=== PATIENT | male | born 1960 | race Caucasian/White ===

== ENCOUNTER 2017-07-17 08:03 | Emergency (ER) | payer OTHER ==
--- NOTE | 2017-07-17 09:01 | Cat Scan Report ---
FINAL REPORT EXAM: CT HEAD/BRAIN WO CON HISTORY: SEVERE HEADACHE TECHNIQUE: CT imaging acquired through the head without intravenous contrast. Transaxial reformations are provided. PRIORS: None. FINDINGS: The ventricles, cisterns and sulci are within normal limits. No intraparenchymal or extra-axial mass, hemorrhage, or mass effect. Cortez and white-matter differentiation is within normal limits for patient age. Normal spherical shape of the globes. No significant abnormality involving the imaged portions of the paranasal sinuses and mastoid air cells. No skull or facial fracture visualized. IMPRESSION: No acute intracranial abnormality. Consider additional imaging for worsening/persistent symptoms.
[2017-07-17] MEDS ORDERED: ULTRAM PO ONE (09:23)
--- NOTE | 2017-07-17 09:25 | Emergency Department Report ---
ED Headache HPI - General Chief Complaint: Headache Stated Complaint: HEAD PAIN Time Seen by Provider: 07/17/17 08:31 Source: patient, old records - History of Present Illness Timing/Duration: other (THIS AM) Quality: mild Head Injury Location: parietal Recent Head Trauma: no recent headache/trauma Associated Symptoms: denies symptoms, other (HEAD PAIN NOT SCALP PAIN; NO N/V; NO PHOTOPHOBIA; DROVE TO ER; AMBULATORY). denies: confusion, fatigue, facial pain, fever/chills, flushing, loss of consciousness, nausea/vomiting, nasal congestion, nasal drainage, numbness in legs/feet, rash, seizures, sinus infection, stiff neck, vision changes, weakness Allergies/Adverse Reactions: Allergies No Known Allergies Allergy (Unverified 07/17/17 08:09) Home Medications: Ambulatory Orders traMADol [Ultram] 50 mg PO Q6HR PRN #12 tablet 07/17/17 ED Review of Systems ROS: Stated complaint: HEAD PAIN Other details as noted in HPI Comment: All other systems reviewed and negative Neurological: headache. denies: weakness, numbness, paresthesias, confusion, abnormal gait, vertigo ED Past Medical Hx - Past Medical History Previous Medical History?: No - Surgical History Past Surgical History?: No - Social History Smoking Status: Former Smoker Substance Use Type: None - Medications Home Medications: Home Medications Medication Instructions Recorded Confirmed Last Taken Type traMADol [Ultram] 50 mg PO Q6HR PRN #12 tablet 07/17/17 Unknown Rx ED Physical Exam - General Limitations: No Limitations General appearance: alert, in no apparent distress - Head Head exam: Present: atraumatic - Eye Eye exam: Present: PERRL, EOMI - ENT ENT exam: Present: mucous membranes moist - Neck Neck exam: Present: normal inspection - Respiratory Respiratory exam: Present: normal lung sounds bilaterally - Cardiovascular Cardiovascular Exam: Present: regular rate, normal rhythm (60 ON EXAM) - GI/Abdominal GI/Abdominal exam: Present: soft - Rectal Rectal exam: Present: deferred - Extremities Exam Extremities exam: Present: normal inspection, full ROM, normal capillary refill. Absent: tenderness, pedal edema, joint swelling - Back Exam Back exam: Present: normal inspection, full ROM. Absent: tenderness, CVA tenderness (R), CVA tenderness (L), muscle spasm, paraspinal tenderness, vertebral tenderness - Neurological Exam Neurological exam: Present: alert, oriented X3, CN II-XII intact, normal gait, reflexes normal - Expanded Neurological Exam Expanded Neurological exam: Present: protecting the airway. Absent: innattentive, memory loss-remote event, memory loss-recent event, ataxia, receptive aphasia, expressive aphasia, total aphasia, tremor Patient oriented to: Present: person, place, time Speech: Present: fluid speech. Absent: receptive aphasia, expressive aphasia, total aphasia Cranial nerves: EOM's Intact: Normal, Gag Reflex: Normal, Tongue Deviation: Normal, Nystagmus: Normal, Facial Sensation: Normal Cerebellar function: Finger to Nose: Normal, Heel to [place]: Normal, Romberg: Normal Upper motor neuron: Pronator Drift: Normal Motor strength exam: RUE: 5, LUE: 5, RLE: 5, LLE: 5 Best Eye Response ([place]): (4) open spontaneously Best Motor Response ([place]): (6) obeys commands Best Verbal Response ([place]): (5) oriented [place] Total: 15 - Psychiatric Psychiatric exam: Present: normal affect, normal mood - Skin Skin exam: Present: warm, dry, intact, normal color ED Course Vital Signs 07/17/17 07/17/17 08:10 10:16 Temperature 97.8 F 97.9 F Pulse Rate 61 55 L Respiratory 18 16 Rate Blood Pressure 136/64 Blood Pressure 122/75 [Left] O2 Sat by Pulse 97 96 Oximetry - Reevaluation(s) Reevaluation #1: 07/17/17 TO ER W AN THIS AM NO ASSOCIATED S/S HE DROVE TO ER IS AMBULATORY NAD VSS NO HTN NO MEDS NO FEVER NO MENINGEAL S/S NO FOCAL NEURO DEF NO FALL NO MVA LOCALIZED AN TO R PAR. AREA. DENIES SKIN PAIN NO RASH NO SINUS TENDERNESS HEENT OTHERWISE N NO CP NO SOB CT NEG TX FOR PAIN PAIN IS DULL AND LOCALIZED Reevaluation #2: 07/17/17 REASSESSED AND PAIN DEC PT EDUCATED ON VARIOUS TYPES OF AN HE WILL SEE PCP THIS WEEK; TOLD HIM IF PERSISTS HE MAY NEED NEURO MD VERBALIZES UNDERSTANDING ED Medical Decision Making - Radiology Data Radiology results: report reviewed, image reviewed - Medical Decision Making SEE NOTE - Differential Diagnosis RO INTRACRANIAL CAUSE OF AH Critical care attestation.: If time is entered above; I have spent that time in minutes in the direct care of this critically ill patient, excluding procedure time. ED Disposition Clinical Impression: Headache Disposition: [id number] TO HOME OR SELFCARE Is pt being admited?: No Does the pt Need Aspirin: No Condition: Stable Instructions: Acute Headache (ED) Additional Instructions: see pcp on Wednesday AM hydrate well MEDS ORDERED TODAY LET YOUR PCP KNOW YOU WHERE SEEN HERE TODAY AND HE CAN CALL US FOR CT REPORT - WHICH IS NORMAL RETURN TO ER FOR WORSENING OR RECURRING PAIN, FEVER, OR ANY CHANGE IN NEUROLOGICAL STATUS SUCH INABILITY TO SPEAK OR DIFFICULTY WALKING SEE ATTACHED DISCHARGE INSTRUCTIONS. Prescriptions: traMADol [Ultram] 50 mg PO Q6HR PRN #12 tablet PRN Reason: Pain Referrals: PRIMARY CAREMD [Primary Care Provider] - 3-5 Days RICHIE MEDRANO MD [Staff Physician] - 3-5 Days Time of Disposition: 09:24
[2017-07-17] MEDS ORDERED: DECADRON IM ONE (09:53)
[2017-07-17 10:17] VITALS: BP 122/75
== END 2017-07-17 10:23 | disposition home or self-care (01) ==
LOC: ED 08:03
DX: R51 Headache (principal); Z87.891 Personal history of nicotine dependence
CPT/HCPCS: 70450; 96372; 99283; J1100